=== PATIENT | female | born 1930 | race Hispanic/Latino ===

== ENCOUNTER → 2019-02-08 | Outpatient (CLI) | payer MEDICARE ==
[~2019-02-08] MED LIST: IOHEXOL-350 50ML VIAL IV ONE
== END | disposition home or self-care (01) ==
LOC: RAH 10:54
PROVIDERS: ATTEND Family Medicine
DX: S09.90XD Unspecified injury of head, subsequent encounter (principal); G31.9 Degenerative disease of nervous system, unspecified; X58.XXXD Exposure to other specified factors, subsequent encounter
CPT/HCPCS: 70470; Q9967